=== PATIENT | male | born 1995 | race Caucasian/White ===

== ENCOUNTER → 2024-06-22 | Outpatient (CLI) | payer OTHER ==
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
== END | disposition home or self-care (01) ==
LOC: RADMRIMAIN 21:42 → EDBD 07-12 17:15
PROVIDERS: ATTEND Orthopaedic Surgery
DX: R60.0 Localized edema (principal)